=== PATIENT | male | born 1940 | race Caucasian/White ===

== ENCOUNTER 2021-12-16 08:38 | Outpatient (CLI) | payer MEDICARE, OTHER ==
[2021-12-16] MEDS ORDERED: Magnevist 469MG/ML 20 ML VIAL ONE (14:40)
== END 2021-12-16 08:39 | disposition home or self-care (01) ==
LOC: CSHMRI 08:38
PROVIDERS: ATTEND Radiology Radiation Oncology
DX: C61 Malignant neoplasm of prostate (principal)
CPT/HCPCS: 72197; 82565

== ENCOUNTER 2022-01-06 07:50 | Outpatient (CLI) | payer MEDICARE, OTHER ==
[2022-01-06] MEDS ORDERED: Iopamidol 370 76% 100 ML VIAL ONE (09:33)
== END 2022-01-06 07:51 | disposition home or self-care (01) ==
LOC: CSHCT 07:50
PROVIDERS: ATTEND Radiology Radiation Oncology
DX: C61 Malignant neoplasm of prostate (principal); N13.30 Unspecified hydronephrosis; N28.9 Disorder of kidney and ureter, unspecified; K90.9 Intestinal malabsorption, unspecified; I70.0 Atherosclerosis of aorta; I77.1 Stricture of artery
CPT/HCPCS: 74177; 82565

== ENCOUNTER 2022-06-12 01:19 | Emergency (ER) | payer MEDICARE, OTHER ==
[2022-06-12] MEDS ORDERED: Labetalol HCl 100 MG/20 ML VIAL ONE (01:52)
[2022-06-12] MEDS ORDERED: Labetalol HCl 100 MG/20 ML VIAL SLOW IVP SCH (02:00)
[2022-06-12 02:12] LABS: #Basophils 0.1 10x3/uL (0.0-0.2); #Eosinphils 0.3 10x3/uL (0.0-0.5); #Neutrophils 4.3 10x3/uL (1.5-8.4); %Basophils 0.8 % (0.0-2.0); %Lymphocytes 12.9 % (18.0-47.0); %Monocytes 14.4 % (0.0-10.0); Hemoglobin 12.2 g/dL (13.5-17.5); Mean Corpuscular HGB CONC 34.2 g/dL (32.0-36.0); Mean Corpuscular Hemoglobin 35.1 pg (27.0-33.0); Mean Corpuscular Volume 102.6 fl (81.2-95.1); Mean Platelet Volume 9.9 fl (7.4-10.4); Platelet Count 227 10x3/uL (150-450); RBC Distribution Width 13.5 % (11.5-14.5); Red Blood Cell (RBC) Count 3.48 10x6/uL (4.32-5.72); White Blood Cell (WBC) Count 6.6 10x3/uL (3.5-10.5)
[2022-06-12 02:17] LABS: ALT (SGPT) 17 U/L (8-55); AST (SGOT) 22 U/L (5-34); Albumin 3.7 g/dL (3.4-4.8); Alkaline Phosphatase 65 U/L (40-110); Anion Gap 14 mmol/L (10-20); BUN (Urea Nitrogen) 17 mg/dL (8.4-25.7); Bilirubin, Total 0.2 mg/dL (0.2-1.2); Calc. Creatinine Clearance 0 mL/min (70-130); Carbon Dioxide 25 mmol/L (23-31); Chloride 104 mmol/L (98-107); Estimated GFR 72; Globulin 2.6 g/dL (2.4-3.5); Glucose 114 mg/dL (83-110); Potassium 3.7 mmol/L (3.5-5.1); Protein, Total 6.3 g/dL (5.8-8.1); Sodium 139 mmol/L (136-145)
== END 2022-06-12 03:37 | disposition home or self-care (01) ==
LOC: CSHERS 01:19
DX: I12.9 Hypertensive chronic kidney disease with stage 1 through stage 4 chronic kidney disease, or unspecified chronic kidney disease (principal); N18.2 Chronic kidney disease, stage 2 (mild); K21.9 Gastro-esophageal reflux disease without esophagitis; E78.00 Pure hypercholesterolemia, unspecified; Z87.891 Personal history of nicotine dependence; Z79.899 Other long term (current) drug therapy
CPT/HCPCS: 71045; 80053; 84484; 85025; 93005; 93010

== ENCOUNTER 2023-04-30 07:10 | Outpatient (CLI) | payer MEDICARE, OTHER ==
[2023-04-30] MEDS ORDERED: Iopamidol 300 61% 100 ML VIAL FS ONE (11:25)
== END 2023-04-30 07:11 | disposition home or self-care (01) ==
LOC: CSHCT 07:10
PROVIDERS: ATTEND Urology
DX: N28.89 Other specified disorders of kidney and ureter (principal); K31.9 Disease of stomach and duodenum, unspecified; N20.0 Calculus of kidney; N13.5 Crossing vessel and stricture of ureter without hydronephrosis
CPT/HCPCS: 74170; Q9967